=== PATIENT | female | born 1945 | race Two or more races ===

== ENCOUNTER 2017-09-21 13:03 | Outpatient (CLI) | payer OTHER | END 2017-09-21 13:19 | disposition home or self-care (01) | LOC: MAMO-SONO 13:03 → RAD 13:03 | DX: Z12.31 Encounter for screening mammogram for malignant neoplasm of breast (principal); Z87.898 Personal history of other specified conditions; N60.11 Diffuse cystic mastopathy of right breast; N60.12 Diffuse cystic mastopathy of left breast ==

== ENCOUNTER 2021-05-25 13:35 | Outpatient (CLI) | payer OTHER | END 2021-05-25 13:37 | disposition home or self-care (01) | LOC: NUCLEAR 13:35 | PROVIDERS: ATTEND Internal Medicine Hematology & Oncology | DX: M81.0 Age-related osteoporosis without current pathological fracture (principal); E55.9 Vitamin D deficiency, unspecified ==

== ENCOUNTER 2021-05-25 14:11 | Outpatient (CLI) | payer OTHER | END 2021-05-25 14:23 | disposition home or self-care (01) | LOC: MAMO-SONO 14:11 | PROVIDERS: ATTEND Internal Medicine Hematology & Oncology | DX: N60.19 Diffuse cystic mastopathy of unspecified breast (principal) ==

== ENCOUNTER 2023-05-18 13:21 | Outpatient (CLI) | payer OTHER | END 2023-05-18 13:24 | disposition home or self-care (01) | LOC: MAMO-SONO 13:21 | PROVIDERS: ATTEND Obstetrics & Gynecology Gynecologic Oncology | DX: N64.59 Other signs and symptoms in breast (principal); Z12.31 Encounter for screening mammogram for malignant neoplasm of breast ==

== ENCOUNTER 2023-06-26 12:55 | Outpatient (CLI) | payer OTHER | END 2023-06-26 12:56 | disposition home or self-care (01) | LOC: NUCLEAR 12:55 | DX: M81.0 Age-related osteoporosis without current pathological fracture (principal); E55.9 Vitamin D deficiency, unspecified; D39.10 Neoplasm of uncertain behavior of unspecified ovary ==